=== PATIENT | female | born 1990 | race Two or more races ===

== ENCOUNTER 2018-11-25 03:02 | Emergency (ER) | payer OTHER ==
[~2018-11-25] VITALS: Ht 160 cm; Wt 59.1 kg
[~2018-11-25 03:02] MED LIST: FOLI1TAB15 PO; IRON18TA PO; PREN1TAB52 PO
[2018-11-25] MEDS ORDERED: METH10TA7 PO (03:19)
[2018-11-25] MEDS ORDERED: KETOROLAC TROMETHAMINE 60 MG/2 ML VIAL IM ONE (03:45)
[2018-11-25 04:30] LABS: HCG,QUANTITATIVE < 1 mIU/mL (0-6)
[2018-11-25 05:06] LABS: AMPHET/METH SCREEN,URINE NEGATIVE (NEGATIVE); BARBITURATE SCREEN, URINE NEGATIVE (NEGATIVE); BENZODIAZEPINES SCREEN,URINE NEGATIVE (NEGATIVE); CANNABINOID SCREEN,URINE NEGATIVE (NEGATIVE); COCAINE SCREEN,URINE NEGATIVE (NEGATIVE); METHADONE SCREEN, URINE NEGATIVE (NEGATIVE); OPIATE SCREEN,URINE NEGATIVE (NEGATIVE)
[2018-11-25 05:09] LABS: PHENCYCLIDINE SCREEN,URINE NEGATIVE (NEGATIVE)
[2018-11-25 05:15] VITALS: BP 105/71
== END 2018-11-25 06:16 | disposition home or self-care (01) ==
LOC: EMS 03:04
DX: F10.129 Alcohol abuse with intoxication, unspecified (principal); M25.551 Pain in right hip; R51 Headache; E05.90 Thyrotoxicosis, unspecified without thyrotoxic crisis or storm; Y90.6 Blood alcohol level of 120-199 mg/100 ml; Z98.890 Other specified postprocedural states; Z79.899 Other long term (current) drug therapy
CPT/HCPCS: 36415; 70450; 72100; 72170; 80307; 81025; 84702; 96372; 99284; G0480; J1885

== ENCOUNTER 2019-06-30 17:25 | Emergency (ER) | payer OTHER ==
[~2019-06-30] VITALS: Ht 157.5 cm; Wt 54.5 kg
[~2019-06-30 17:25] MED LIST changes: -FOLI1TAB15 PO; -IRON18TA PO; +METH10TA7 PO; -PREN1TAB52 PO
[2019-06-30 19:43] LABS: BASOPHILS % (AUTO) 0.3 % (0.0-2.0); EOSINOPHILS % (AUTO) 0 % (1.0-6.0); HEMATOCRIT 37.1 % (36-46); HEMOGLOBIN 12.4 g/dL (12.0-16.0); LYMPHOCYTES # (AUTO) 0.7 K/uL (1.0-4.8); LYMPHOCYTES % (AUTO) 25.5 % (22.0-44.0); MEAN CORPUSCULAR HEMOGLOBIN 27.7 pg (26.0-34.0); MEAN CORPUSCULAR HGB CONC 33.5 G/dL (31.0-37.0); MEAN CORPUSCULAR VOLUME 83 fL (80-100); MONOCYTES # (AUTO) 0.6 K/uL (0.1-1.0); NEUTROPHILS # (AUTO) 1.5 K/uL (1.8-7.7); NEUTROPHILS % (AUTO) 54.2 % (40.0-70.0); PLATELET COUNT (AUTO) 153 K/uL (150-450); RED BLOOD CELL COUNT(AUTO) 4.47 MIL/uL (4.00-5.20)
[2019-06-30 20:03] LABS: ANION GAP 9 mmol/L (8-16); CARBON DIOXIDE 26 mmol/L (22-29); CHLORIDE 103 mmol/L (98-107); CREATININE 0.43 mg/dL (0.60-1.30); GLOMERULAR FILTR. RATE CALC > 60 mL/min (>60); GLUCOSE,RANDOM 107 mg/dL (70-110); POTASSIUM 3.4 mmol/L (3.5-5.1); SODIUM SERUM 138 mmol/L (136-145); UREA NITROGEN, BLOOD 9 mg/dL (7-18)
[2019-06-30 20:04] LABS: INFLUENZA TYPE A NEGATIVE FOR TYPE A (NEGATIVE); INFLUENZA TYPE B NEGATIVE FOR TYPE B (NEGATIVE)
[2019-06-30 20:17] LABS: ALANINE AMINOTRANSFERASE 42 U/L (12-78); ALBUMIN 3.3 g/dL (3.4-5.0); ALKALINE PHOSPHATASE 168 U/L (46-116); ASPARTATE AMINOTRANSFERASE 45 U/L (15-37); BILIRUBIN,TOTAL 0.3 mg/dL (0.1-1.0)
[2019-06-30 20:39] LABS: THYROID STIMULATING HORMONE < 0.01 uIU/mL (0.36-3.74)
[2019-06-30] MEDS ORDERED: POTASSIUM CHLORIDE 20 MEQ ER TABLET PO ONE (20:45)
[2019-06-30] MEDS ORDERED: SODIUM CHLORIDE 0.9% 1,000 ML IV ONE (20:45)
[2019-06-30] MEDS ORDERED: ACETAMINOPHEN 500 MG TABLET PO ONE (20:45)
[2019-06-30 21:39] VITALS: BP 108/51
== END 2019-06-30 22:59 | disposition home or self-care (01) ==
LOC: EMS 17:25
DX: B97.29 Other coronavirus as the cause of diseases classified elsewhere (principal); D72.819 Decreased white blood cell count, unspecified; E05.00 Thyrotoxicosis with diffuse goiter without thyrotoxic crisis or storm; E87.6 Hypokalemia; R11.10 Vomiting, unspecified
CPT/HCPCS: 36415; 71045; 76856; 80053; 84436; 84443; 84481; 85025; 87635; 87804; 96360; 99285; J7030

== ENCOUNTER 2019-11-09 18:06 | Emergency (ER) | payer OTHER ==
[~2019-11-09] VITALS: Ht 165.1 cm; Wt 61.4 kg
[2019-11-09] MEDS ORDERED: METO25 PO (18:23)
[2019-11-09] MEDS ORDERED: PENICILLIN G BENZATHINE LA 1,200,000 UNITS/2 ML SYRINGE IM ONE (19:00)
[2019-11-09] MEDS ORDERED: DEXAMETHASONE SOD PHOS 4 MG/ML 5 ML VIAL IM ONE (19:00)
[2019-11-09 19:35] VITALS: BP 115/61
== END 2019-11-09 19:49 | disposition home or self-care (01) ==
LOC: EMS 18:06
DX: J02.0 Streptococcal pharyngitis (principal); I10 Essential (primary) hypertension; E03.9 Hypothyroidism, unspecified
CPT/HCPCS: 96372; 99284; J0561; J1100

== ENCOUNTER 2020-02-22 11:48 | Emergency (ER) | payer OTHER ==
[~2020-02-22] VITALS: Ht 157.5 cm; Wt 65.0 kg
[~2020-02-22 11:48] MED LIST changes: +METO25 PO
[2020-02-22 12:58] LABS: COVID AG,FIA SOURCE NASOPHARYNGEAL
[2020-02-22 13:34] LABS: INFLUENZA TYPE A NEGATIVE FOR TYPE A (NEGATIVE); INFLUENZA TYPE B NEGATIVE FOR TYPE B (NEGATIVE)
[2020-02-22] MEDS ORDERED: CefTRIAXone SODIUM 1 GM/VIAL IM ONE (14:00)
[2020-02-22] MEDS ORDERED: LIDOCAINE/PF 1% 2 ML VIAL IM ONE (14:00)
[2020-02-22 14:29] VITALS: BP 127/86
== END 2020-02-22 14:39 | disposition home or self-care (01) ==
LOC: EMS 11:52
DX: J02.9 Acute pharyngitis, unspecified (principal); Z20.828 Contact with and (suspected) exposure to other viral communicable diseases; I10 Essential (primary) hypertension; E03.9 Hypothyroidism, unspecified
CPT/HCPCS: 87426; 87804; 96372; 99283; J0696; J3490

== ENCOUNTER 2020-05-01 17:37 | Emergency (ER) | payer OTHER ==
[~2020-05-01] VITALS: Ht 157.5 cm; Wt 62.7 kg
[2020-05-01 19:27] VITALS: BP 114/63
[2020-05-01] MEDS ORDERED: ONDANSETRON HCL 4 MG TABLET PO ONE (20:45)
[2020-05-01 21:29] LABS: BASOPHILS % (AUTO) 0.2 % (0.0-2.0); EOSINOPHILS % (AUTO) 0.1 % (1.0-6.0); HEMATOCRIT 35.2 % (36-46); HEMOGLOBIN 11.9 g/dL (12.0-16.0); LYMPHOCYTES # (AUTO) 1.6 K/uL (1.0-4.8); LYMPHOCYTES % (AUTO) 31.2 % (22.0-44.0); MEAN CORPUSCULAR HEMOGLOBIN 28.5 pg (26.0-34.0); MEAN CORPUSCULAR HGB CONC 33.8 G/dL (31.0-37.0); MEAN CORPUSCULAR VOLUME 85 fL (80-100); MONOCYTES # (AUTO) 0.4 K/uL (0.1-1.0); MONOCYTES % (AUTO) 8.5 % (2.0-9.0); PLATELET COUNT (AUTO) 205 K/uL (150-450); RED BLOOD CELL COUNT(AUTO) 4.17 MIL/uL (4.00-5.20); RED CELL DISTRIBUTION WIDTH 12.8 % (11.5-14.5)
[2020-05-01 21:37] LABS: ANION GAP 7 mmol/L (8-16); CALCIUM, TOTAL 8.8 mg/dL (8.8-10.5); CARBON DIOXIDE 26 mmol/L (22-29); CHLORIDE 103 mmol/L (98-107); CREATININE 0.67 mg/dL (0.60-1.30); GLOMERULAR FILTR. RATE CALC > 60 mL/min (>60); GLUCOSE,RANDOM 108 mg/dL (70-110); POTASSIUM 3.8 mmol/L (3.5-5.1); SODIUM SERUM 136 mmol/L (136-145); UREA NITROGEN, BLOOD 14 mg/dL (7-18)
[2020-05-01 21:47] LABS: ALANINE AMINOTRANSFERASE 18 U/L (12-78); ALBUMIN 3.1 g/dL (3.4-5.0); ALKALINE PHOSPHATASE 154 U/L (46-116); ASPARTATE AMINOTRANSFERASE 11 U/L (15-37); BILIRUBIN,TOTAL 0.3 mg/dL (0.1-1.0); HCG,QUANTITATIVE 109 mIU/mL (0-6); LIPASE 66 U/L (73-393); TOTAL PROTEIN, SERUM 6.7 g/dL (6.4-8.2)
== END 2020-05-01 22:26 | disposition home or self-care (01) ==
LOC: EMS 17:37
DX: O26.891 Other specified pregnancy related conditions, first trimester (principal); R11.0 Nausea; Z3A.01 Less than 8 weeks gestation of pregnancy
CPT/HCPCS: 76801; 76817; 80053; 83690; 84702; 85025; 99284; Q0162

== ENCOUNTER 2020-05-03 00:47 | Emergency (ER) | payer OTHER ==
[~2020-05-03] VITALS: Ht 157.5 cm; Wt 62.7 kg
[2020-05-03] MEDS ORDERED: SODIUM CHLORIDE 0.9% 1,000 ML IV ONE (01:45)
[2020-05-03 02:24] LABS: BASOPHILS % (AUTO) 0.2 % (0.0-2.0); EOSINOPHILS % (AUTO) 0.1 % (1.0-6.0); HEMATOCRIT 36.5 % (36-46); HEMOGLOBIN 12.4 g/dL (12.0-16.0); LYMPHOCYTES # (AUTO) 1.9 K/uL (1.0-4.8); LYMPHOCYTES % (AUTO) 30.9 % (22.0-44.0); MEAN CORPUSCULAR HEMOGLOBIN 28.4 pg (26.0-34.0); MEAN CORPUSCULAR HGB CONC 33.9 G/dL (31.0-37.0); MEAN CORPUSCULAR VOLUME 84 fL (80-100); MONOCYTES # (AUTO) 0.5 K/uL (0.1-1.0); NEUTROPHILS # (AUTO) 3.8 K/uL (1.8-7.7); NEUTROPHILS % (AUTO) 60.8 % (40.0-70.0); PLATELET COUNT (AUTO) 205 K/uL (150-450); RED BLOOD CELL COUNT(AUTO) 4.35 MIL/uL (4.00-5.20); RED CELL DISTRIBUTION WIDTH 12.8 % (11.5-14.5)
[2020-05-03 02:50] LABS: ANION GAP 4 mmol/L (8-16); CALCIUM, TOTAL 8.8 mg/dL (8.8-10.5); CARBON DIOXIDE 27 mmol/L (22-29); CHLORIDE 102 mmol/L (98-107); CREATININE 0.53 mg/dL (0.60-1.30); GLOMERULAR FILTR. RATE CALC > 60 mL/min (>60); GLUCOSE,RANDOM 109 mg/dL (70-110); POTASSIUM 3.8 mmol/L (3.5-5.1); SODIUM SERUM 133 mmol/L (136-145); UREA NITROGEN, BLOOD 17 mg/dL (7-18)
[2020-05-03 02:51] LABS: APPEARANCE,URINE CLOUDY (CLEAR); BILIRUBIN,URINE NEGATIVE (NEGATIVE); GLUCOSE, URINE (UA) NEGATIVE (NEGATIVE); KETONES,URINE NEGATIVE (NEGATIVE); LEUKOCYTE ESTERASE ,URINE NEGATIVE (NEGATIVE); NITRATE,URINE NEGATIVE (NEGATIVE); OCCULT BLOOD,URINE NEGATIVE (NEGATIVE); PH,URINE 6.5 (5.0-8.0); PROTEIN,URINE NEGATIVE (NEGATIVE)
[2020-05-03] MEDS ORDERED: ONDANSETRON HCL 4 MG/2 ML VIAL IVP ONE (03:00)
[2020-05-03 03:01] LABS: ALANINE AMINOTRANSFERASE 21 U/L (12-78); ALBUMIN 3.3 g/dL (3.4-5.0); ALKALINE PHOSPHATASE 162 U/L (46-116); ASPARTATE AMINOTRANSFERASE 12 U/L (15-37); BILIRUBIN,TOTAL 0.1 mg/dL (0.1-1.0); HCG,QUANTITATIVE 170 mIU/mL (0-6); LIPASE 86 U/L (73-393); TOTAL PROTEIN, SERUM 6.9 g/dL (6.4-8.2)
[2020-05-03 05:14] VITALS: BP 115/78
== END 2020-05-03 06:00 | disposition home or self-care (01) ==
LOC: EMS 00:48
DX: O21.0 Mild hyperemesis gravidarum (principal); O26.891 Other specified pregnancy related conditions, first trimester; O16.1 Unspecified maternal hypertension, first trimester; R10.11 Right upper quadrant pain; Z3A.01 Less than 8 weeks gestation of pregnancy
CPT/HCPCS: 36415; 76801; 76817; 80053; 81003; 83690; 84702; 85025; 86901; 96361; 96374; 99284; J2405

== ENCOUNTER 2020-06-14 16:32 | Inpatient (IN) | payer OTHER ==
[~2020-06-14] VITALS: Ht 167.6 cm; Wt 74.0 kg
[2020-06-14 17:20] LABS: EOSINOPHILS % (AUTO) 0 % (1.0-6.0); HEMATOCRIT 28.8 % (36-46); LYMPHOCYTES # (AUTO) 1.5 K/uL (1.0-4.8); LYMPHOCYTES % (AUTO) 13.2 % (22.0-44.0); MEAN CORPUSCULAR HEMOGLOBIN 27.9 pg (26.0-34.0); MEAN CORPUSCULAR HGB CONC 34.8 G/dL (31.0-37.0); MEAN CORPUSCULAR VOLUME 80 fL (80-100); MONOCYTES # (AUTO) 0.6 K/uL (0.1-1.0); MONOCYTES % (AUTO) 4.9 % (2.0-9.0); NEUTROPHILS # (AUTO) 9.3 K/uL (1.8-7.7); NEUTROPHILS % (AUTO) 81.9 % (40.0-70.0); PLATELET COUNT (AUTO) 210 K/uL (150-450); RED BLOOD CELL COUNT(AUTO) 3.58 MIL/uL (4.00-5.20); RED CELL DISTRIBUTION WIDTH 12.7 % (11.5-14.5)
[2020-06-14] MEDS ORDERED: SODIUM CHLORIDE 0.9% 1,000 ML IV ONE ×2 (18:30→20:15)
[2020-06-14] MEDS ORDERED: ONDANSETRON HCL 4 MG/2 ML VIAL IVP ONE (18:30)
[2020-06-14] MEDS ORDERED: MORPHINE SULFATE 4 MG/ML SYRINGE IVP ONE (18:30)
[2020-06-14 18:50] LABS: INR 1.1 (0.9-1.1); PROTHROMBIN TIME 11.4 SEC (9.4-11.6)
[2020-06-14 19:52] LABS: COVID AG,FIA SOURCE NASOPHARYNGEAL
[2020-06-14] MEDS ORDERED: PIPERACILLIN/TAZO 3.375 GM/D5W 50 ML IV ONE (20:30)
[2020-06-14] MEDS ORDERED: VANCOMYCIN HCL 1.5 GM in DEXTROSE 5%-WATER 250 ML IV ONE (21:00)
[2020-06-14 22:00] LABS: ANION GAP 10 mmol/L (8-16); CALCIUM, TOTAL 8.5 mg/dL (8.8-10.5); CARBON DIOXIDE 22 mmol/L (22-29); CHLORIDE 107 mmol/L (98-107); CREATININE 0.36 mg/dL (0.60-1.30); GLOMERULAR FILTR. RATE CALC > 60 mL/min (>60); GLUCOSE,RANDOM 100 mg/dL (70-110); POTASSIUM 3.5 mmol/L (3.5-5.1); SODIUM SERUM 139 mmol/L (136-145); UREA NITROGEN, BLOOD 5 mg/dL (7-18)
[2020-06-14 22:06] LABS: ALANINE AMINOTRANSFERASE 18 U/L (12-78); ALBUMIN 2.7 g/dL (3.4-5.0); ALKALINE PHOSPHATASE 99 U/L (46-116); ASPARTATE AMINOTRANSFERASE 10 U/L (15-37); BILIRUBIN,TOTAL 0.3 mg/dL (0.1-1.0); TOTAL PROTEIN, SERUM 6.1 g/dL (6.4-8.2)
[2020-06-15] VITALS (7 sets, daily range): BP systolic 90–101; BP diastolic 48–63
[2020-06-15] MEDS ORDERED: MORPHINE SULFATE 2 MG/ML SYRINGE IVP PRN (00:15)
[2020-06-15] MEDS ORDERED: MORPHINE SULFATE 4 MG/ML SYRINGE IVP PRN (00:15)
[2020-06-15] MEDS: RINGERS SOLUTION,LACTATED 1,000 ML IV SCH ×2 (00:41→15:09)
[2020-06-15] MEDS: ONDANSETRON HCL 4 MG/2 ML VIAL IVP PRN ×2 (00:43→09:50)
[2020-06-15] MEDS ORDERED: INFLUENZA VIRUS VACCINE QVS 2020-21 (6MO+)/PF 60 MCG/0.5 ML SYRINGE IM ONE (01:45)
[2020-06-15] MEDS: PIPERACILLIN/TAZO 3.375 GM/D5W 50 ML IV SCH ×3 (03:24→15:09)
[2020-06-15] MEDS ORDERED: SILVER NITRATE APPLICATOR 1 EA STICK TP ONE (07:00)
[2020-06-15] MEDS ORDERED: RINGERS SOLUTION,LACTATED 1,000 ML IV SCH (07:15)
[2020-06-15] MEDS ORDERED: PROPOFOL 1000 MG/ISO-OSM 100 ML IV ONE (07:20)
[2020-06-15] MEDS ORDERED: OXYTOCIN 10 UNITS/ML VIAL IM ONE (08:23)
[2020-06-15] MEDS ORDERED: IBUPROFEN 400 MG TABLET PO PRN (13:15)
[2020-06-15] MEDS: ACETAMINOPHEN 325 MG TABLET PO PRN ×2 (15:08→19:40)
[2020-06-15] MEDS ORDERED: IBUP-2492 PO (16:32)
[2020-06-15] MEDS ORDERED: FERR325T22 PO (16:35)
[2020-06-15 17:19] LABS: EOSINOPHILS % (AUTO) 0.1 % (1.0-6.0); HEMATOCRIT 23.4 % (36-46); HEMOGLOBIN 7.9 g/dL (12.0-16.0); LYMPHOCYTES # (AUTO) 1.4 K/uL (1.0-4.8); MEAN CORPUSCULAR HEMOGLOBIN 28.2 pg (26.0-34.0); MEAN CORPUSCULAR HGB CONC 33.9 G/dL (31.0-37.0); MEAN CORPUSCULAR VOLUME 83 fL (80-100); MONOCYTES # (AUTO) 0.5 K/uL (0.1-1.0); MONOCYTES % (AUTO) 8.3 % (2.0-9.0); NEUTROPHILS % (AUTO) 67.6 % (40.0-70.0); PLATELET COUNT (AUTO) 174 K/uL (150-450); RED BLOOD CELL COUNT(AUTO) 2.81 MIL/uL (4.00-5.20); RED CELL DISTRIBUTION WIDTH 12.5 % (11.5-14.5)
[2020-06-15] MEDS ORDERED: FentaNYL CITRATE PF 100 MCG/2 ML VIAL IVP ONE (21:19)
[2020-06-15] MEDS ORDERED: KETAMINE HCL 50 MG/ML 10 ML VIAL IVP ONE (21:19)
[2020-06-15] MEDS ORDERED: LIDOCAINE/PF 2% 5 ML VIAL IM ONE (21:19)
[2020-06-15] MEDS ORDERED: MIDAZOLAM HCL 2 MG/2 ML VIAL IVP ONE (21:19)
[2020-06-15] MEDS ORDERED: ONDANSETRON HCL 4 MG/2 ML VIAL IVP ONE (21:19)
== END 2020-06-15 21:20 | disposition home or self-care (01) | DRG 544 ==
LOC: EMS 16:32 → 4E 23:31 → 6N 06-15 19:30
PROVIDERS: ADMIT Obstetrics & Gynecology; ATTEND Obstetrics & Gynecology
PROC: 10D17ZZ Extraction of Products of Conception, Retained, Via Natural or Artificial Opening (ICD-10-PCS; principal; 2020-06-15 07:30)
DX: O03.4 Incomplete spontaneous abortion without complication (principal); O99.281 Endocrine, nutritional and metabolic diseases complicating pregnancy, first trimester; Z3A.09 9 weeks gestation of pregnancy; N85.2 Hypertrophy of uterus; Z20.822 Contact with and (suspected) exposure to COVID-19; O16.1 Unspecified maternal hypertension, first trimester
CPT/HCPCS: 76801; 76817; 83605; 86901; 87040; 87426; 88305; 99291; G0378; J2250; J2270; J2405; J2543; J2590; J2704; J3010; J3370; J3490; J7030; J7060; J7120

== ENCOUNTER 2022-06-05 20:10 | Emergency (ER) | payer OTHER ==
[~2022-06-05] VITALS: Ht 162.6 cm; Wt 63.6 kg
[~2022-06-05 20:10] MED LIST changes: +FERR325T22 PO; +IBUP-2492 PO; -METH10TA7 PO; -METO25 PO
[2022-06-05 21:38] LABS: ANION GAP 6 mmol/L (8-16); BASOPHILS % (AUTO) 0.3 % (0.0-2.0); CALCIUM, TOTAL 8.5 mg/dL (8.8-10.5); CARBON DIOXIDE 28 mmol/L (22-29); CHLORIDE 105 mmol/L (98-107); EOSINOPHILS % (AUTO) 0.3 % (1.0-6.0); GLOMERULAR FILTR. RATE CALC > 60 mL/min (>60); GLUCOSE,RANDOM 130 mg/dL (70-110); HEMATOCRIT 35.9 % (36-46); HEMOGLOBIN 11.9 g/dL (12.0-16.0); LYMPHOCYTES # (AUTO) 2.1 K/uL (1.0-4.8); MEAN CORPUSCULAR HEMOGLOBIN 28.5 pg (26.0-34.0); MEAN CORPUSCULAR HGB CONC 33.1 G/dL (31.0-37.0); MEAN CORPUSCULAR VOLUME 86 fL (80-100); MONOCYTES # (AUTO) 0.5 K/uL (0.1-1.0); MONOCYTES % (AUTO) 8.7 % (2.0-9.0); NEUTROPHILS # (AUTO) 3.3 K/uL (1.8-7.7); NEUTROPHILS % (AUTO) 55.7 % (40.0-70.0); PLATELET COUNT (AUTO) 198 K/uL (150-450); POTASSIUM 3.7 mmol/L (3.5-5.1); RED BLOOD CELL COUNT(AUTO) 4.16 MIL/uL (4.00-5.20); RED CELL DISTRIBUTION WIDTH 13.8 % (11.5-14.5); SODIUM SERUM 139 mmol/L (136-145); UREA NITROGEN, BLOOD 18 mg/dL (7-18)
[2022-06-05 22:05] LABS: ALANINE AMINOTRANSFERASE 14 U/L (12-78); ALBUMIN 3.2 g/dL (3.4-5.0); ALKALINE PHOSPHATASE 121 U/L (46-116); ASPARTATE AMINOTRANSFERASE 14 U/L (15-37); BILIRUBIN,TOTAL 0.2 mg/dL (0.1-1.0); TOTAL PROTEIN, SERUM 6.6 g/dL (6.4-8.2)
[2022-06-05 22:08] LABS: HCG,QUANTITATIVE 2226 mIU/mL (0-6)
[2022-06-05 22:34] LABS: APPEARANCE,URINE CLEAR (CLEAR); BILIRUBIN,URINE NEGATIVE (NEGATIVE); GLUCOSE, URINE (UA) NEGATIVE (NEGATIVE); KETONES,URINE TRACE mg/dL (NEGATIVE); LEUKOCYTE ESTERASE ,URINE NEGATIVE (NEGATIVE); NITRATE,URINE NEGATIVE (NEGATIVE); OCCULT BLOOD,URINE NEGATIVE (NEGATIVE); PH,URINE 6.5 (5.0-8.0); PROTEIN,URINE TRACE mg/dL (NEGATIVE); SPECIFIC GRAVITIY, URINE 1.032 (1.003-1.030)
[2022-06-06 00:02] LABS: COVID AG,FIA SOURCE NASAL SWAB
[2022-06-06 00:07] LABS: THYROID STIMULATING HORMONE < 0.01 uIU/mL (0.36-3.74)
[2022-06-06] MEDS ORDERED: ONDANSETRON HCL 4 MG TABLET PO ONE (00:15)
[2022-06-06] MEDS ORDERED: ACETAMINOPHEN 325 MG TABLET PO ONE (00:15)
[2022-06-06 00:29] LABS: INFLUENZA TYPE A NEGATIVE FOR TYPE A (NEGATIVE); INFLUENZA TYPE B NEGATIVE FOR TYPE B (NEGATIVE)
[2022-06-06 01:00] VITALS: BP 96/60
== END 2022-06-06 01:17 | disposition home or self-care (01) ==
LOC: EMS 20:11
DX: O26.899 Other specified pregnancy related conditions, unspecified trimester (principal); E05.00 Thyrotoxicosis with diffuse goiter without thyrotoxic crisis or storm; I10 Essential (primary) hypertension; E03.9 Hypothyroidism, unspecified; Z98.890 Other specified postprocedural states; Z20.822 Contact with and (suspected) exposure to COVID-19; Z3A.00 Weeks of gestation of pregnancy not specified
CPT/HCPCS: 99285; 76801; 87426; 80053; 81003; 84436; 84443; 84702; 85025; 87804; 36415; 84481; 76817; 93005; Q0162

== ENCOUNTER 2022-11-26 20:45 | Emergency (ER) | payer OTHER ==
[~2022-11-26] VITALS: Ht 160 cm; Wt 81.4 kg
[2022-11-26 21:03] VITALS: TEMP 98.1
[2022-11-26] MEDS ORDERED: DOXYLAMINE SUCCINATE 25 MG TABLET PO ONE (23:00)
[2022-11-26] MEDS ORDERED: PYRIDOXINE HCL 50 MG TABLET PO ONE (23:00)
[2022-11-26] MEDS ORDERED: SODIUM CHLORIDE 0.9% 1,000 ML IV ONE (23:00)
[2022-11-26 23:18] LABS: BASOPHILS % (AUTO) 0.2 % (0.0-2.0); MEAN CORPUSCULAR HGB CONC 31.8 G/dL (31.0-37.0); MONOCYTES # (AUTO) 0.6 K/uL (0.1-1.0); PLATELET COUNT (AUTO) 214 K/uL (150-450); RED BLOOD CELL COUNT(AUTO) 3.99 MIL/uL (4.00-5.20); RED CELL DISTRIBUTION WIDTH 15.9 % (11.5-14.5)
[2022-11-26 23:35] LABS: ANION GAP 13 mmol/L (8-16); CALCIUM, TOTAL 8.4 mg/dL (8.8-10.5); CARBON DIOXIDE 21 mmol/L (22-29); CHLORIDE 101 mmol/L (98-107); CREATININE 0.28 mg/dL (0.60-1.30); GLOMERULAR FILTR. RATE CALC > 60 mL/min (>60); GLUCOSE,RANDOM 85 mg/dL (70-110); POTASSIUM 3.6 mmol/L (3.5-5.1); SODIUM SERUM 135 mmol/L (136-145)
[2022-11-26 23:42] LABS: EOSINOPHILS % (AUTO) 0 % (1.0-6.0); HEMATOCRIT 30.1 % (36-46); HEMOGLOBIN 9.6 g/dL (12.0-16.0); LYMPHOCYTES # (AUTO) 2.1 K/uL (1.0-4.8); LYMPHOCYTES % (AUTO) 22.5 % (22.0-44.0); MEAN CORPUSCULAR VOLUME 75 fL (80-100); MONOCYTES % (AUTO) 6.4 % (2.0-9.0); NEUTROPHILS # (AUTO) 6.5 K/uL (1.8-7.7); NEUTROPHILS % (AUTO) 70.9 % (40.0-70.0)
[2022-11-27 00:04] LABS: ALBUMIN 2.5 g/dL (3.4-5.0); ALKALINE PHOSPHATASE 110 U/L (46-116); ASPARTATE AMINOTRANSFERASE 9 U/L (15-37); BILIRUBIN,TOTAL 0.3 mg/dL (0.1-1.0); HCG,QUANTITATIVE 1841 mIU/mL (0-6); LIPASE 19 U/L (16-77); TOTAL PROTEIN, SERUM 6.3 g/dL (6.4-8.2)
[2022-11-27 00:20] LABS: ALANINE AMINOTRANSFERASE < 6 U/L (12-78)
[2022-11-27] MEDS ORDERED: DOXY1TAB3 PO (00:51)
[2022-11-27 01:11] VITALS: BP 100/52; PULSE 78; RESP 18
== END 2022-11-27 01:16 | disposition home or self-care (01) ==
LOC: EMS 20:45
DX: O21.9 Vomiting of pregnancy, unspecified (principal); O16.3 Unspecified maternal hypertension, third trimester; O99.283 Endocrine, nutritional and metabolic diseases complicating pregnancy, third trimester; Z3A.28 28 weeks gestation of pregnancy; Z98.890 Other specified postprocedural states
CPT/HCPCS: 99284; 96360; 80053; 83690; 84702; 85025; 36415; J7030